=== PATIENT | male | born 1935 | race Caucasian/White ===

== ENCOUNTER 2018-08-09 12:32 | Outpatient (CLI) | payer OTHER ==
[~2018-08-09 12:32] MED LIST: ACYCLOVIR15 GM TP; ASA-EC81 MG PO; BRILINTA90 MG PO; CARVEDILOL25 MG PO; Cozaar PO; INTEGRA F CAPS1 EACH PO; LOSARTAN POTASS50 MG PO; LOVAZA1 G PO; Neurin-Sl Tablet Sl SL; PROTONIX40 MG PO; WELCHOL625 MG PO; ZETIA10 MG PO; ZOVIRAX400 M1 PO
== END 2018-08-09 12:38 | disposition home or self-care (01) ==
LOC: RAD 12:32
DX: J11.89 Influenza due to unidentified influenza virus with other manifestations (principal); J06.9 Acute upper respiratory infection, unspecified; E11.9 Type 2 diabetes mellitus without complications

== ENCOUNTER 2019-05-09 08:14 | Outpatient (CLI) | payer OTHER | END 2019-05-09 17:00 | disposition home or self-care (01) | LOC: SONOGRAMA 08:14 | DX: R16.0 Hepatomegaly, not elsewhere classified (principal) ==

== ENCOUNTER → 2020-02-15 | Outpatient (CLI) | payer OTHER ==
[~2020-02-15] MED LIST changes: +ARICEPT5 MG PO; +COSOPT PF EYE1 EACH; +ELIQUIS2.5 MG; +VIRT-CAPS SOFTGE1 MG; +ZETIA10 MG
== END | disposition home or self-care (01) ==
LOC: TOM 09:00
PROVIDERS: ATTEND Internal Medicine Hepatology
DX: I63.89 Other cerebral infarction (principal)

== ENCOUNTER 2020-02-29 06:45 | Inpatient (IN) | payer OTHER ==
[~2020-02-29] VITALS: Ht 180.3 cm; Wt 72.6 kg
[~2020-02-29 06:45] MED LIST changes: -ARICEPT5 MG PO; -COSOPT PF EYE1 EACH; -ELIQUIS2.5 MG; -VIRT-CAPS SOFTGE1 MG; -ZETIA10 MG
[2020-02-29] MEDS ORDERED: ELIQUIS2.5 MG (07:58)
[2020-02-29] MEDS ORDERED: ZETIA10 MG (07:59)
[2020-03-05] MEDS ORDERED: COSOPT PF EYE1 EACH (08:22)
[2020-03-05] MEDS ORDERED: ARICEPT5 MG PO (08:22)
[2020-03-05] MEDS ORDERED: VIRT-CAPS SOFTGE1 MG (08:23)
== END 2020-03-17 13:16 | disposition home or self-care (01) | DRG 177 ==
LOC: ER 06:45 → MEDJ 17:05 → SEC-K 17:05 → MEDI 17:05 → MEDJ 18:32 → MEDI 03-06 10:53
PROVIDERS: ADMIT Internal Medicine Geriatric Medicine; ATTEND Internal Medicine Geriatric Medicine
PROC: 8E0ZXY6 Isolation (ICD-10-PCS; principal; 2020-02-29)
PROC: 3E0F7GC Introduction of Other Therapeutic Substance into Respiratory Tract, Via Natural or Artificial Opening (ICD-10-PCS; 2020-02-29)
PROC: B24BZZZ Ultrasonography of Heart with Aorta (ICD-10-PCS; 2020-02-29)
PROC: 4A12X4Z Monitoring of Cardiac Electrical Activity, External Approach (ICD-10-PCS; 2020-02-29)
PROC: 4A033R1 Measurement of Arterial Saturation, Peripheral, Percutaneous Approach (ICD-10-PCS; 2020-02-29)
PROC: CB2YYZZ Tomographic (Tomo) Nuclear Medicine Imaging of Respiratory System using Other Radionuclide (ICD-10-PCS; 2020-03-01)
PROC: 5A09557 Assistance with Respiratory Ventilation, Greater than 96 Consecutive Hours, Continuous Positive Airway Pressure (ICD-10-PCS; 2020-03-02)
PROC: 30233N1 Transfusion of Nonautologous Red Blood Cells into Peripheral Vein, Percutaneous Approach (ICD-10-PCS; 2020-03-03)
PROC: 02HV33Z Insertion of Infusion Device into Superior Vena Cava, Percutaneous Approach (ICD-10-PCS; 2020-03-05)
PROC: 0JDH3ZZ Extraction of Left Lower Arm Subcutaneous Tissue and Fascia, Percutaneous Approach (ICD-10-PCS; 2020-03-05)
PROC: 0JDG3ZZ Extraction of Right Lower Arm Subcutaneous Tissue and Fascia, Percutaneous Approach (ICD-10-PCS; 2020-03-05)
PROC: 02H633Z Insertion of Infusion Device into Right Atrium, Percutaneous Approach (ICD-10-PCS; 2020-03-13)
PROC: 0JH63XZ Insertion of Tunneled Vascular Access Device into Chest Subcutaneous Tissue and Fascia, Percutaneous Approach (ICD-10-PCS; 2020-03-13)
PROC: 5A1D70Z Performance of Urinary Filtration, Intermittent, Less than 6 Hours Per Day (ICD-10-PCS; 2020-03-13)
DX: U07.1 COVID-19 (principal); J12.89 Other viral pneumonia; J96.01 Acute respiratory failure with hypoxia; E87.2 Acidosis; I13.2 Hypertensive heart and chronic kidney disease with heart failure and with stage 5 chronic kidney disease, or end stage renal disease; N18.5 Chronic kidney disease, stage 5; N17.9 Acute kidney failure, unspecified; E87.0 Hyperosmolality and hypernatremia; I25.10 Atherosclerotic heart disease of native coronary artery without angina pectoris; Z95.5 Presence of coronary angioplasty implant and graft; I50.9 Heart failure, unspecified; F10.21 Alcohol dependence, in remission; Z85.89 Personal history of malignant neoplasm of other organs and systems; I27.20 Pulmonary hypertension, unspecified; G30.9 Alzheimer's disease, unspecified; F02.80 Dementia in other diseases classified elsewhere, unspecified severity, without behavioral disturbance, psychotic disturbance, mood disturbance, and anxiety; Z95.0 Presence of cardiac pacemaker; D64.9 Anemia, unspecified; L98.499 Non-pressure chronic ulcer of skin of other sites with unspecified severity; E86.0 Dehydration